=== PATIENT | female | born 1945 | race Caucasian/White ===

== ENCOUNTER 2017-04-17 08:35 | Day surgery (SDC) | payer MEDICARE, BC ==
[~2017-04-17] VITALS: Ht 162.6 cm; Wt 104.0 kg
[~2017-04-17 08:35] MED LIST: ALLO100 PO; ASPI325EC PO; ASPI81CH PO; CALC.25 PO; CINA30 PO; CIPR500 PO; Desyrel50 MG PO; FURO40 PO; Hydrocodone-Ap1 EA23 PO; INSU100I6 SC; INSULANPEN SC; LISI5 PO; METO2.5 PO; METO50 PO; METOLAZONE PO; SEVEC800 PO
== END 2017-04-17 10:53 | disposition home or self-care (01) ==
LOC: ORSCSDS 08:35
PROVIDERS: Ophthalmology
PROC: 08RJ3JZ Replacement of Right Lens with Synthetic Substitute, Percutaneous Approach (ICD-10-PCS; principal; 2017-04-17 10:00)
DX: H25.11 Age-related nuclear cataract, right eye (principal); E11.9 Type 2 diabetes mellitus without complications; Z79.82 Long term (current) use of aspirin; Z79.4 Long term (current) use of insulin; Z79.899 Other long term (current) drug therapy; N19 Unspecified kidney failure
CPT/HCPCS: 82947; J2250; J3301; J7040; V2632

== ENCOUNTER 2019-02-24 09:52 | Emergency (ER) | payer MEDICARE, BC ==
[~2019-02-24] VITALS: Ht 165.1 cm; Wt 104.3 kg
--- NOTE | 2019-02-24 11:39 | NUR ---
I met patient's spouse, Tano in the consult room in the ED. He explained about the events that led to his arriving at the ED and the care that was being provided. Patient's Dr. entered the room and gave an update to which Tano stated clearly that his did not want to be intubated or for herioc measures to go on. After left Tano stated again that several times the patient told him that she did not want to to be sustained by life support in any way. I spent considerable time with Tano conducting a life review of patient, providing grief support and prayer. As family began to arrive I continued to answer their questions and help them in the grieving process. I listen empathically and provide grief support to the family until they leave the ED.
== END 2019-02-24 11:30 ==
LOC: ER 09:52
DX: I46.9 Cardiac arrest, cause unspecified (principal); R60.0 Localized edema; N18.9 Chronic kidney disease, unspecified; Z99.2 Dependence on renal dialysis; Z66 Do not resuscitate; Z85.3 Personal history of malignant neoplasm of breast; Z87.891 Personal history of nicotine dependence; Z79.899 Other long term (current) drug therapy; Z79.4 Long term (current) use of insulin; Z79.82 Long term (current) use of aspirin
CPT/HCPCS: 31500; 31720; 36680; 92950; 96374-59; 96375-59; 99285-25; J0461; J2310